=== PATIENT | female | born 1965 | race Caucasian/White ===

== ENCOUNTER 2019-05-25 18:27 | Emergency (ER) | payer MEDICAID ==
[~2019-05-25] VITALS: Ht 175.3 cm; Wt 90.0 kg
[2019-05-25] MEDS ORDERED: ATOR-2 PO (18:46)
[2019-05-25] MEDS ORDERED: METF500T17 PO (18:46)
[2019-05-25] MEDS ORDERED: HYDR25TA6 PO (18:46)
[2019-05-25] MEDS ORDERED: SITA25TA PO (18:46)
[2019-05-25] MEDS ORDERED: ERGO800010 PO (18:46)
[2019-05-25] MEDS ORDERED: LISI-167 PO (18:46)
--- NOTE | 2019-05-25 18:51 | NUR ---
PATIENT ARRIVES VIA [facility] FROM MD OFFICE. RN AT MD OFFICE NOTICED IRREGULAR PULSE, SO PATIENT WAS PLACED ON THE MONITOR. THERE THEY NOTICED BIGEMENY AND COUPLETS WITH MULTIFOCAL PVC'S. MD CALLED [facility] [place] FOR TRANSPORT. PT IS AWAKE A/O X3 AND DENIES ANY PAIN. PT IS A SMOKER AND HAS BEEN HAVING TROUBLE GETTING HER BLOOD GLUCOSE LEVELS DOWN. PT SMOKED METH LAST NIGHT, AND DOES THIS EVERY OTHER NIGHT. PT DENIES ANY PALPITATIONS OR PAIN IN HER CHEST. PUT IN GOWN, PLACED ON MONITORS, AND CALL LIGHT GIVEN WITH INSTRUCTIONS. BLANKET GIVEN FOR COMFORT.
--- NOTE | 2019-05-25 19:39 | NUR ---
PT RESTING IN BED. LAB DRAWN, AWAITING TEST RESULTS.
[2019-05-25 19:43] LABS: BASOPHILS # (AUTO) 0.02 x10^3/uL (0-0.1); BASOPHILS % (AUTO) 0 % (0-1); EOSINOPHILS # (AUTO) 0.15 x10^3/uL (0-0.4); EOSINOPHILS % (AUTO) 2 % (1-7); LYMPHOCYTES # (AUTO) 2.05 x10^3/uL (1-3.4); LYMPHOCYTES % (AUTO) 27 % (22-44); MD NO; MEAN CORPUSCULAR HGB CONC 33.6 g/dL (32.4-35.8); MEAN CORPUSCULAR VOLUME 89.5 fL (80-100); MEAN PLATELET VOLUME 8.3 fL (7.4-10.4); MONOCYTES # (AUTO) 0.57 x10^3/uL (0.2-0.8); MONOCYTES % (AUTO) 7 % (2-9); NEUTROPHILS # (AUTO) 4.93 x10^3/uL (1.8-6.8); NEUTROPHILS % (AUTO) 64 % (42-75); PLATELET COUNT 228 x10^3/uL (130-400); RED BLOOD COUNT 5.22 x10^6/uL (3.82-5.3); RED CELL DISTRIBUTION WIDTH 13.7 % (9.6-15.2)
[2019-05-25 19:53] LABS: ANION GAP 6 mmol/L (5-15); CHLORIDE 105 mmol/L (98-107); CREATININE 0.68 mg/dL (0.55-1.02)
[2019-05-25 19:54] LABS: ALBUMIN 3.2 g/dL (3.4-5.0)
[2019-05-25 19:58] LABS: TROPONIN I < 0.015 ng/mL (0.000-0.045)
[2019-05-25 20:04] LABS: T4 (THYROXINE) 9.1 mcg/dL (4.8-13.9)
[2019-05-25 20:39] VITALS: BP 133/89
--- NOTE | 2019-05-25 20:39 | NUR ---
PT STABLE, DENIES PALPITATIONS OR CHEST PAIN. AWAITING POC DECISION BY MD. AT BEDSIDE.
--- NOTE | 2019-05-25 21:25 | NUR ---
DISCHARGE INSTRUCTIONS GIVEN TO PATIENT. PT VERBALIZES UNDERSTANDING OF ALL INSTRUCTIONS AND FOLLOW UP. PT AMBULATED OUT OF ED PER PEDIS WITH .
== END 2019-05-25 21:28 | disposition home or self-care (01) ==
LOC: ED 19:45
DX: R00.2 Palpitations (principal); I49.3 Ventricular premature depolarization; E11.9 Type 2 diabetes mellitus without complications; I10 Essential (primary) hypertension; R00.0 Tachycardia, unspecified; F17.210 Nicotine dependence, cigarettes, uncomplicated
CPT/HCPCS: 36415; 80048; 82040; 84436; 84443; 84484; 85025; 93005; 99284